=== PATIENT | male | born 1955 | race Caucasian/White ===

== ENCOUNTER 2021-09-10 10:49 | Inpatient (IN) | payer MEDICARE, OTHER, SELFPAY ==
[2021-09-10] VITALS (7 sets, daily range): BP systolic 72–88; BP diastolic 11–65; PULSE 50–122; RESP 18–31; TEMP 36.2; O2SAT 81–93
--- NOTE | ~2021-09-10 | XR_ITS ---
. EXAMINATION: XR chest ET placement DATE: 09/10/2021 11:20 INDICATION: Cardiac arrest. TECHNIQUE: A single frontal view of the chest was obtained on 2 radiographs. COMPARISON: CT abdomen and pelvis 03/08/2015 FINDINGS: There is a diffuse interstitial pattern in the lungs, consistent with mild pulmonary edema. No pleural effusion or pneumothorax. Cardiomegaly is noted. Median sternotomy wires are noted. The e ndotracheal tube tip is 5.0 cm above the caroline. The nasogastric tube tip is in the stomach. IMPRESSION: 1. Mild pulmonary edema. 2. Cardiomegaly. Reviewed, dictated and finalized at location A. LSTERER HELPER
--- NOTE | 2021-09-10 10:52 | PC.NURSE ---
EDP Mikel in room for intubation at this time - Per EDP Morin, give 100mg succinylcholine IVP. Size 7.5 ETT 25 at the lip Equal rise and fall of chest Good color change on ETCO2 Bilateral breath sounds
--- NOTE | 2021-09-10 11:05 | ECG_ITS ---
Measurements Intervals [place] Rate: 84 P: -33 [place]: 224 QRS: -60 QRSD: 200 T: 0 QT: 414 QTc: 490 Interpretive Statements SINUS RHYTHM WITH FIRST DEGREE AV BLOCK ATRIAL AND VENTRICULAR PREMATURE COMPLEXES ATRIAL PREMATURE COMPLEX LEFT AXIS DEVIATION RIGHT BUNDLE BRANCH BLOCK INFERIOR ST ELEVATION MYOCARDIAL INFARCT, ACUTE ABNORMAL ECG Electronically Signed On 09-10-2021 12:00:06 WIG STYLIST by William Mclaughlin D.O.
--- NOTE | 2021-09-10 11:07 | PC.NURSE ---
No amiodarone drip started following 300mg dose of amiodarone per EDМария Morin.
[2021-09-10 11:09] LABS: Glucose Point of Care 314 mg/dl (65-105)
--- NOTE | 2021-09-10 11:12 | PC.NURSE ---
EKG completed following ROSC. STEMI called at this time.
--- NOTE | 2021-09-10 11:27 | PC.NURSE ---
Patient in PEA, pulseless. Second code blue called. SAAD Morin in room. See code sheet.
[2021-09-10 11:29] LABS: Basophils Absolute Auto 0.2 K/mm3 (0.0-0.1); Basophils Percent Auto 1.2 % (0.2-1.2); Eosinophils Absolute Auto 0.8 K/mm3 (0-0.3); Eosinophils Percent Auto 4.7 % (0-4.4); Hematocrit 45.9 % (42.0-52.0); Hemoglobin 14.4 g/dL (14.0-18.0); Immature Granulocyte Percent A 3.4 % (0-0.5); Lymphocytes Absolute Auto 8.52 K/mm3 (0.9-3.2); Lymphocytes Percent Auto 48.8 % (18.3-44.2); Mean Corpuscular HGB Conc 31.4 g/dl (32-36); Mean Corpuscular Hemoglobin 32.9 pg (26-34); Mean Corpuscular Volume 104.8 fl (80-100); Mean Platelet Volume 10.9 fl (7.4-10.4); Monocytes Absolute Auto 1.5 K/mm3 (0.1-0.6); Monocytes Percent Auto 8.6 % (2.6-8.5); Neutrophils Absolute Auto 5.8 K/mm3 (1.3-6.7); Neutrophils Percent Auto 33.3 % (45.5-73.1); Nucleated Red Blood Cells Absolute Auto 0.1 K/mm3 (0.0-0.012); Nucleated Red Blood Cells Perc 0.4 % (0.0-0.2); Platelet Count Result 151 k/mm3 (150-375); Red Blood Count 4.38 M/mm3 (4.6-6.20); Red Cell Distribution Width 15.3 % (11.5-14.5); White Blood Count 17.5 K/mm3 (4.5-10.0)
[2021-09-10 11:40] LABS: INR 1.2; Prothrombin Time 15.2 Seconds (11.1-14.7)
[2021-09-10 11:41] LABS: Partial Thromboplastin Time 35.5 SECONDS (22.3-36.8)
[2021-09-10 11:44] LABS: Alanine Aminotransferase 27 U/L (4-50); Albumin Level 3.8 g/dL (3.5-5.1); Alkaline Phosphatase 44 U/L (38-126); Anion Gap 16 mmol/L (8-16); Aspartate Amino Transferase 35 U/L (17-59); Bilirubin,Total 1.6 mg/dL (0.2-1.3); Blood Urea Nitrogen 7 mg/dL (9-20); Calcium 8.8 mg/dL (8.4-10.2); Carbon Dioxide 19 mmol/L (22-30); Chloride 103 mmol/L (98-107); Estimated Glomerular Filt Rate 51; Glucose 306 mg/dL (65-110); Sodium 138 mmol/L (137-145)
--- NOTE | 2021-09-10 11:45 | PC.NURSE ---
Per EDМария Morin via VORB, patient received total of 3L NS.
--- NOTE | 2021-09-10 11:47 | ED.GENADULT ---
HPI - General Adult General Chief complaint: Cardiac Arrest/CPR Stated complaint: Resp Distress Source: family and EMS Mode of arrival: EMS Limitations: clinical condition Medical Decision Making Lab Data Result diagrams: 09/10/21 11:08 09/10/21 11:08 Labs: Lab Results 09/10/21 09/10/21 09/10/21 Range/Units 11:04 11:08 11:08 WBC 17.5 H (4.5-10.0) K/mm3 RBC 4.38 L (4.6-6.20) M/mm3 Hgb 14.4 (14.0-18.0) g/dL Hct 45.9 (42.0-52.0) % MCV 104.8 H (80-100) fl MCH 32.9 (26-34) pg MCHC 31.4 L (32-36) g/dl RDW 15.3 H (11.5-14.5) % Plt Count 151 (150-375) k/mm3 MPV 10.9 H (7.4-10.4) fl Immature Gran % (Auto) 3.4 H (0-0.5) % Neut % (Auto) 33.3 L (45.5-73.1) % Lymph % (Auto) 48.8 H (18.3-44.2) % [place] % (Auto) 8.6 H (2.6-8.5) % Eos % (Auto) 4.7 H (0-4.4) % Baso % (Auto) 1.2 (0.2-1.2) % Lymph # (Auto) 8.52 H (0.9-3.2) K/mm3 [place] # (Auto) 1.5 H (0.1-0.6) K/mm3 Eos # (Auto) 0.8 H (0-0.3) K/mm3 Baso # (Auto) 0.2 H (0.0-0.1) K/mm3 Abs Immat Gran (auto) 0.60 H (0.00-0.031) K/mm3 Absolute Neuts (auto) 5.8 (1.3-6.7) K/mm3 Absolute Nucleated RBC 0.1 H (0.0-0.012) K/mm3 Nucleated RBC % 0.4 H (0.0-0.2) % PT 15.2 H (11.1-14.7) Seconds INR 1.2 APTT 35.5 (22.3-36.8) SECONDS Sodium (137-145) mmol/L Potassium (3.4-5.0) mmol/L Chloride (98-107) mmol/L Carbon Dioxide (22-30) mmol/L Anion Gap (8-16) mmol/L BUN (9-20) mg/dL Creatinine (0.7-1.3) mg/dL Estim Creat Clear Calc Estimated GFR (59 - ) Glucose (65-110) mg/dL POC Capillary Glucose 314 H (65-105) mg/dl Lactic Acid Calcium (8.4-10.2) mg/dL Total Bilirubin (0.2-1.3) mg/dL AST (17-59) U/L ALT (4-50) U/L Alkaline Phosphatase (38-126) U/L Troponin I Total Protein (6.3-8.2) g/dL Albumin (3.5-5.1) g/dL 09/10/21 09/10/21 09/10/21 Range/Units 11:08 11:08 11:08 WBC (4.5-10.0) K/mm3 RBC (4.6-6.20) M/mm3 Hgb (14.0-18.0) g/dL Hct (42.0-52.0) % MCV (80-100) fl MCH (26-34) pg MCHC (32-36) g/dl RDW (11.5-14.5) % Plt Count (150-375) k/mm3 MPV (7.4-10.4) fl Immature Gran % (Auto) (0-0.5) % Neut % (Auto) (45.5-73.1) % Lymph % (Auto) (18.3-44.2) % [place] % (Auto) (2.6-8.5) % Eos % (Auto) (0-4.4) % Baso % (Auto) (0.2-1.2) % Lymph # (Auto) (0.9-3.2) K/mm3 [place] # (Auto) (0.1-0.6) K/mm3 Eos # (Auto) (0-0.3) K/mm3 Baso # (Auto) (0.0-0.1) K/mm3 Abs Immat Gran (auto) (0.00-0.031) K/mm3 Absolute Neuts (auto) (1.3-6.7) K/mm3 Absolute Nucleated RBC (0.0-0.012) K/mm3 Nucleated RBC % (0.0-0.2) % PT (11.1-14.7) Seconds INR APTT (22.3-36.8) SECONDS Sodium 138 (137-145) mmol/L Potassium 3.0 L (3.4-5.0) mmol/L Chloride 103 (98-107) mmol/L Carbon Dioxide 19 L (22-30) mmol/L Anion Gap 16 (8-16) mmol/L BUN 7 L (9-20) mg/dL Creatinine 1.40 H (0.7-1.3) mg/dL Estim Creat Clear Calc Not Reportable Estimated GFR 51 L (59 - ) Glucose 306 H (65-110) mg/dL POC Capillary Glucose (65-105) mg/dl Lactic Acid Pending Calcium 8.8 (8.4-10.2) mg/dL Total Bilirubin 1.6 H (0.2-1.3) mg/dL AST 35 (17-59) U/L ALT 27 (4-50) U/L Alkaline Phosphatase 44 (38-126) U/L Troponin I Pending Total Protein 6.0 L (6.3-8.2) g/dL Albumin 3.8 (3.5-5.1) g/dL
[2021-09-10 11:50] LABS: Lactic Acid Reflex 9.3 mmol/L (0.7-2.1)
[2021-09-10 12:03] LABS: Troponin I 0.484 ng/mL (0.000-0.034)
--- NOTE | 2021-09-10 12:12 | SUR.OPER ---
Pt arrived from ED on stretcher, intubated. HR started to decline on monitor, checked for pulse, No pulse - CPR started. See - starch factory laborer notes. CPR stopped at 1208. Time of 1209. Family here - Pt transferred to stretcher and to PACU for family to see pt.
--- NOTE | 2021-09-10 12:18 | PM.CNCAR ---
Assessment and Plan Assessment and plan (1) Cardiac arrest with pulseless electrical activity: Code(s): I46.9 - Cardiac arrest, cause unspecified Status: Acute Assessment and Plan: 65-year-old male with history of CAD, history of remote CABG (in [place], [place] as per patient's family -operative report not available, unknown grafts); ? COPD/ bronchitis, heavy tobacco abuse. Patient presented with severe shortness of breath, was found to have wide complex tachycardia in the emergency room for which he was shocked, later developed pulseless electrical activity in the emergency room, was resuscitated with amish of palpable rhythm. He was later transferred to the cardiac cath technician for cardiac catheterization based on EKG suggestive of possible inferior WI, however, before the procedure, patient went back into the pulseless electrical activity and was unsuccessfully resuscitated for about 16 minutes. Patient's family wanted the code to stop, and code was called at 12:09 p.m. History of Present Illness History of Present Illness Consult date/time: 09/10/21 12:18 DATE OF CONSULT:09/10/2021 REASON FOR CONSULT: ventricular tachycardia, followed by PEA cardiac arrest, possible ST-elevation WI REQUESTING PHYSICIAN:Dr. Morin ( ER physician) CHIEF COMPLAINT: shortness of breath HPI: 65-year-old male with history of CAD, history of remote CABG (in [place], [place] as per patient's family -operative report not available, unknown grafts); ? COPD/ bronchitis, heavy tobacco abuse. Patient was driving with his today many had shortness of breath. EMS was called, and patient was found to be severely short of breath. Upon arrival to the ER, patient became more short of breath and reportedly had wide complex tachycardia, for which he was shocked. His EKG showed sinus rhythm, first-degree AV block, right bundle-branch block, and ST segment elevation in the inferior leads. I was called by the ER physician for possible ST-elevation WI. patient was getting ready to be transferred to the cardiac cath technician, when he had pulseless electrical activity and was resuscitated in the emergency room as per ACLS protocol with amish of palpable rhythm. Patient was intubated. I personally spoke with the patient's in emergency room, who told me that patient has not had regular follow-up with with Cardiology over the years. At baseline, he has dyspnea on mild exertion, which patient's attributed to smoking. He has not had any recent chest discomfort. Based on patient's clinical presentation and EKG findings, patient was transferred to the cardiac cath technician. Upon arrival to the cardiac cath technician, patient went into the pulseless electrical activity cardiac arrest, and was resuscitated as per ACLS protocol with epinephrine, atropine and sodium bicarbonate; and was also shocked for VFib during the resuscitation. ICU physician, along with me and the cardiac cath technician staff participated in the code. After 16 minutes of resuscitation, patient remained in the pulseless electrical activity. Patient's family decided to stop the code, and code was called at 1209. Reason For Visit: Resp Distress Review of Systems Review of Systems: Unable to obtain due to cardiac arrest and active resuscitation. Patient presented with shortness of breath, no chest pain. He has baseline dyspnea on exertion. Information was gathered from the patient's family. [facility] Past Medical History Medical History (Updated 09/10/21 @ 12:30 by Donn Cortez MD) CAD (coronary artery disease) Social History Social History (Updated 09/10/21 @ 12:26 by Donn Cortez MD) Smoking status: Current every day smoker Alcohol intake: unknown Substance use: never Living arrangements: with family Meds Vital Signs Vital Signs - 24 hr 09/10/21 10:45 Temperature 36.2 C L Pulse Rate 122 H Respiratory Rate 31 H Blood Pressure 163/73 H Pulse Oximetry 81 L Exam Narrative: PHYSICAL EXAMINATION: GE
--- NOTE | 2021-09-10 12:24 | PDCODEBLUE ---
Code Blue Note Code Blue Note Time Arrived at Code Blue: 1155 Initial Rhythm on Arrival: PEA Airway Management: Pt being bagged on arrival Chest Compressions: In process on arrival to bedside Result of Code Blue: Pt Cardiac Rhythm Post Code: Junctional bradycardia with rate in 20s Code Amauri Summary: 65-year-old male with history of coronary disease status post bypass grafting who was driving today and got suddenly short of breath. EMS was called and patient was brought to the hospital. Patient was hypoxic and in respiratory distress. He had a cardiac arrest in ER and received CPR and epinephrine. ROSC was obtained but later patient again had a 2nd cardiac arrest and received CPR additional dose of epinephrine. Patient in total received 7 dose of epinephrine and had a long down time. Please refer to ER note for details. Cardiology were consulted and patient was taken to cardiac catheterization lab as patient was thought to be having an MN. patient when arrived to cardiac catheterization lab and was placed on table he again lost his pulse. CPR was initiated and Carrington Henry was called in the room. I responded to carrington henry announcement to cardiac cath technologist. Patient was being bagged. He was in PEA rhythm. I discussed case with Dr. Cortez andl CPR was continued, patient was given several dose of epinephrine and 2 amps of bicarb. Patient had already received 1 dose of atropine prior to my arrival. In between patient went into VFib twice and was defibrillated. Patient in total got 6 dose of epinephrine and resuscitation was continued for 18 minute from 1151 to 1209. At that point patient's POA his son-in-law arrived. He was updated by staff regarding patient's condition and our inability to obtain pulse despite 18 minutes of resuscitation which was his 3rd cardiac arrest. That point he requested to discontinue further resuscitation efforts and keep patient comfortable. CPR was discontinued. Patient had no pulse in either of the carotid or femoral arteries. It was examined by multiple examiner. I saw no respiratory effort. Patient was cyanotic he had no heart sounds. On monitor he was in junctional [place] in 20. Patient was pronounced at 12:09 p.m. Total Critical Care Time - 31 minutes Due to a high probability of clinically significant, life threatening deterioration, the patient required my highest level of preparedness to intervene emergently and I personally spent this critical care time directly and personally managing the patient. This critical care time included obtaining a history; examining the patient; pulse oximetry; ordering and review of studies; arranging urgent treatment with development of a management plan; evaluation of patient's response to treatment; frequent reassessment; and discussions with other providers. It was exclusive of separately billable procedures and treating other patients and teaching time. Please see Assessment and Plan section and the rest of the note for further information on patient assessment and treatment
--- NOTE | 2021-09-10 12:34 | P.DN_ITS ---
Discharge Summary Date and Time Date of : 09/10/21 Time of : 12:09 Provider Pronounced By: ICU physician Probable Cause of Probable Cause of : PEA cardiac arrest Summary Hospital Course: 65-year-old male with history of CAD, history of remote CABG (in [place], [place] as per patient's family -operative report not available, unknown grafts); ? COPD/ bronchitis, heavy tobacco abuse. Patient was driving with his today many had shortness of breath. EMS was called, and patient was found to be severely short of breath. Upon arrival to the ER, patient became more short of breath and reportedly had wide complex tachycardia, for which he was shocked. His EKG showed sinus rhythm, first- degree AV block, right bundle-branch block, and ST segment elevation in the inferior leads. I was called by the ER physician for possible ST-elevation CA. patient was getting ready to be transferred to the veterinarian laboratory animal care, when he had pulseless electrical activity and was resuscitated in the emergency room as per ACLS protocol with yarsani of palpable rhythm. Patient was intubated. I personally spoke with the patient's in emergency room, who told me that patient has not had regular follow-up with with Cardiology over the years. At baseline, he has dyspnea on mild exertion, which patient's attributed to smoking. He has not had any recent chest discomfort. Based on patient's clinical presentation and EKG findings, patient was transferred to the veterinarian laboratory animal care. Upon arrival to the veterinarian laboratory animal care, patient went into the pulseless electrical activity cardiac arrest, and was resuscitated as per ACLS protocol with epinephrine, atropine and sodium bicarbonate; and was also shocked for VFib during the resuscitation. ICU physician, along with me and the veterinarian laboratory animal care staff participated in the code. After 16 minutes of resuscitation, patient remained in the pulseless electrical activity. Patient's family decided to stop the code, and code was called at 1209. Additional Data Was code activated?: Yes
--- NOTE | 2021-09-10 12:42 | ECG_ITS ---
Measurements Intervals [place] Rate: 97 P: -58 [place]: 141 QRS: -45 QRSD: 166 T: 0 QT: 357 QTc: 454 Interpretive Statements SINUS RHYTHM WITH FIRST DEGREE AV BLOCK SUPRAVENTRICULAR BIGEMINY AND ATRIAL AND VENTRICULAR PREMATURE COMPLEXES RIGHT BUNDLE BRANCH BLOCK INFERIOR ST ELEVATION MYOCARDIAL INFARCT- ACUTE BASELINE ARTIFACT- AVR, V4-V6 ABNORMAL ECG Electronically Signed On 09-10-2021 13:03:19 GARAGE WORKER by William Mclaughlin D.O.
--- NOTE | 2021-09-10 14:23 | PC.NURSE ---
Patient was transferred from the Cardiac Pumper Helper from the ED for an emergent cardiac cath. However, after transfer to the procedure table before the procedure began the patient coded again. Code Blue called and CPR initiated immediately. See code documentation. Resuscitation attempts unsuccessful and the time of was pronounced at 12:[address] Zacarias. [facility] and [facility] Coroner notified by this RN. Patient released by Car Inspection And Repair Manager's office and is not a candidate for donation. Patient's body transported to the [facility] with the assistance of the ICU staff. Security notified.
[2021-09-10 14:26] LABS: Reflex Lactic Acid Yes or No Add Lactic
--- NOTE | 2021-09-11 08:19 | ED.GENADULT ---
HPI - General Adult General Chief complaint: Cardiac Arrest/CPR Stated complaint: Resp Distress Source: family and EMS Mode of arrival: EMS Limitations: clinical condition History of Present Illness HPI narrative: Patient was driving his car, suddenly developed severe shortness of breath, pulled over, could not breathe, called 911, refused to have oxygen on and pulling the oxygen mask off his face, on arrival to the emergency room patient was having severe labored breathing, unable to talk, and 1 minute his face went to blue cyanosis, CPR and ACLS protocol started, monitor showing V. tach, patient received 1 shock, pulse came back, then patient coded again, EKG showed STEMI, cardiology was called, then transferred to cardiac cath. Review of Systems Review of Systems: ROS unobtainable: Yes unobtainable due to medical condition and unobtainable due to mental status PMFSH Past Medical History Medical History CAD (coronary artery disease) Social History Social History Smoking status: Current every day smoker Alcohol intake: unknown Substance use: never Living arrangements: with family Exam Narrative: General appearance: Well-developed, well-nourished, Skin: Cold, cyanotic face, Head: Normocephalic, nontraumatic Eyes: Pupils not reactive to light ENT: Oropharynx normal, ears normal, nose normal Neck: Supple, nontender Chest and respiratory: Diminishment of air entry bilaterally, scattered wheezing bilaterally Heart: Tachycardia Abdomen: Soft, nontender, no organomegaly, no bowel sounds Neurologic: Unresponsive, intubated Course Course Emergency Course: Guarded Consultations Consultation #1: DR MCDONALD, clerk checker on-call Vital Signs Vital signs: Vital Signs Temperature 36.2 C L 09/10/21 10:45 Pulse Rate 122 H 09/10/21 10:45 Respiratory Rate 31 H 09/10/21 10:45 Pulse Oximetry 81 L 09/10/21 10:45 Temperature 36.2 C L 09/10/21 10:45 Pulse Rate 101 H 09/10/21 11:41 Respiratory Rate 23 H 09/10/21 11:41 Blood Pressure 87/58 L 09/10/21 11:41 Pulse Oximetry 89 L 09/10/21 11:41 Medical Decision Making MDM Narrative Medical decision making narrative: Patient presents with severe shortness of breath and cardiopulmonary arrest, patient was intubated, then admitted to cardiac cath for STEMI. Differential Diagnosis Differential Diagnosis: Acute respiratory failure, acute coronary syndrome, cardiac arrest Vital Signs Vital Signs: Vital Signs Temperature 36.2 C L 09/10/21 10:45 Pulse Rate 122 H 09/10/21 10:45 Respiratory Rate 31 H 09/10/21 10:45 Pulse Oximetry 81 L 09/10/21 10:45 Temperature 36.2 C L 09/10/21 10:45 Pulse Rate 101 H 09/10/21 11:41 Respiratory Rate 23 H 09/10/21 11:41 Blood Pressure 87/58 L 09/10/21 11:41 Pulse Oximetry 89 L 09/10/21 11:41 Lab Data Result diagrams: 09/10/21 11:08 09/10/21 11:08 Labs: Lab Results 09/10/21 09/10/21 09/10/21 Range/Units 11:04 11:08 11:08 WBC 17.5 H (4.5-10.0) K/mm3 RBC 4.38 L (4.6-6.20) M/mm3 Hgb 14.4 (14.0-18.0) g/dL Hct 45.9 (42.0-52.0) % MCV 104.8 H (80-100) fl MCH 32.9 (26-34) pg MCHC 31.4 L (32-36) g/dl RDW 15.3 H (11.5-14.5) % Plt Count 151 (150-375) k/mm3 MPV 10.9 H (7.4-10.4) fl Immature Gran % (Auto) 3.4 H (0-0.5) % Neut % (Auto) 33.3 L (45.5-73.1) % Lymph % (Auto) 48.8 H (18.3-44.2) % [place] % (Auto) 8.6 H (2.6-8.5) % Eos % (Auto) 4.7 H (0-4.4) % Baso % (Auto) 1.2 (0.2-1.2) % Lymph # (Auto) 8.52 H (0.9-3.2)
== END 2021-09-10 13:50 | disposition expired ==
LOC: ANHED 11:15 → ANHCATHLAB 11:28 → ANHICU 09-11 09:01 → ANHED 09-12 07:46 → ANH3MEDSUR 09-13 15:27
PROVIDERS: Admitting Provider Internal Medicine Cardiovascular Disease; Emergency Provider Emergency Medicine; Visit Provider Internal Medicine Cardiovascular Disease
DX: I46.9 Cardiac arrest, cause unspecified (principal); J96.01 Acute respiratory failure with hypoxia; I21.3 ST elevation (STEMI) myocardial infarction of unspecified site; I49.01 Ventricular fibrillation; I44.0 Atrioventricular block, first degree; I45.10 Unspecified right bundle-branch block; R00.0 Tachycardia, unspecified; I25.10 Atherosclerotic heart disease of native coronary artery without angina pectoris; Z95.1 Presence of aortocoronary bypass graft; J44.9 Chronic obstructive pulmonary disease, unspecified; F17.200 Nicotine dependence, unspecified, uncomplicated
CPT/HCPCS: 31500; 36415; 51702; 80053; 82948; 83605; 84484; 85025; 85610; 85730; 92950; 93005; 99285; J0171; J0461; J1644; J7040